=== PATIENT | male | born 1990 | race African-American/Black ===

== ENCOUNTER 2018-02-02 21:42 | Emergency (ER) | payer BC ==
[~2018-02-02] VITALS: Ht 170.2 cm; Wt 93.4 kg
[2018-02-02] MEDS ORDERED: ASPIRIN325 PO (22:21)
[2018-02-02 22:44] VITALS: BP 107/51
== END 2018-02-02 22:44 | disposition home or self-care (01) ==
LOC: ER 21:42
DX: F12.19 Cannabis abuse with unspecified cannabis-induced disorder (principal); F16.10 Hallucinogen abuse, uncomplicated